=== PATIENT | male | born 1985 | race African-American/Black ===

== ENCOUNTER 2018-06-27 03:38 | Emergency (ER) | payer SELFPAY ==
[~2018-06-27] VITALS: Ht 182.9 cm; Wt 113.4 kg
[2018-06-27 03:54] VITALS: BP 140/80
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
[2018-06-27] MEDS ORDERED: Tetanus/Diptheria/Pertussis Vaccine 0.5ml Syr IM ONE (04:00)
[2018-06-27 04:25] VITALS: BP 140/80
== END 2018-06-27 04:35 | disposition home or self-care (01) ==
LOC: EDBD 03:38 → EMR 04:32
DX: S01.112A Laceration without foreign body of left eyelid and periocular area, initial encounter (principal); Y00.XXXA Assault by blunt object, initial encounter; Y93.89 Activity, other specified; Y92.89 Other specified places as the place of occurrence of the external cause; Z23 Encounter for immunization; Z88.2 Allergy status to sulfonamides
CPT/HCPCS: 90471; 90715; 99283